=== PATIENT | male | born 1970 | race Hispanic/Latino ===

== ENCOUNTER 2017-12-09 12:00 | Emergency (ER) | payer MEDICAID ==
[~2017-12-09 12:00] MED LIST: CARV3.12 PO; CHOL4PAC21 PO; CYAN10009 PO; FOLI1TAB15 PO; FURO-151 PO; HYDR10TA14 PO; LACT10SO PO; LOSA50TA37 PO; PANT40TA25 PO; SERT25TA5 PO; SPIR100T3 PO
== END 2017-12-09 14:37 | disposition left against medical advice (07) ==
LOC: EDH 12:00
DX: R07.9 Chest pain, unspecified (principal); K74.60 Unspecified cirrhosis of liver; Z88.6 Allergy status to analgesic agent; Z87.891 Personal history of nicotine dependence
CPT/HCPCS: 71045; 93005

== ENCOUNTER → 2018-11-27 | Outpatient (CLI) | payer MEDICAID ==
[~2018-11-27] VITALS: Ht 188 cm; Wt 93.0 kg
[~2018-11-27] MED LIST changes: +HYDR-3894 PO; -HYDR10TA14 PO; -LOSA50TA37 PO; +LOSA50TA64 PO; +REGADENOSON 0.4 MG/5 ML PF SYG IVP SCH; -SPIR100T3 PO; +SPIR100T5 PO
== END | disposition home or self-care (01) ==
LOC: SHCH 07:52
PROVIDERS: ATTEND Internal Medicine Cardiovascular Disease
DX: R06.09 Other forms of dyspnea (principal)
CPT/HCPCS: 78452; 93017; 96374; A9500 ×2; J2785 ×2

== ENCOUNTER 2020-06-24 12:30 | Emergency (ER) | payer MEDICAID ==
[~2020-06-24 12:30] MED LIST changes: +CYAN-52 PO; -CYAN10009 PO; -HYDR-3894 PO; +HYDR-4419 PO; -PANT40TA25 PO; +PANT40TA54 PO; -REGADENOSON 0.4 MG/5 ML PF SYG IVP SCH
[2020-06-24 13:53] LABS: BASOPHILS % (AUTO) 0.4 % (0.0-5.0); EOSINOPHILS % (AUTO) 0.5 % (0.0-8.0); HEMATOCRIT 30.1 % (42-54); LYMPHOCYTES % (AUTO) 13.3 % (21.0-51.0); MEAN CORPUSCULAR HEMOGLOBIN 30.3 pg (27.0-33.0); MEAN CORPUSCULAR HGB CONC 33.9 g/dL (32.0-36.0); MEAN CORPUSCULAR VOLUME 89.3 fL (79-99); MONOCYTES % (AUTO) 13.7 % (3.0-13.0); NEUTROPHILS % (AUTO) 71.3 % (40.0-77.0); PLATELET COUNT (AUTO) 93 K/uL (130-400); RED BLOOD CELL COUNT(AUTO) 3.37 MIL/uL (4.50-6.20); RED CELL DISTRIBUTION WIDTH 19.6 % (11.0-15.5); WHITE BLOOD COUNT (AUTO) 10.2 K/uL (4.8-10.8)
[2020-06-24 14:04] LABS: CREATININE 1.3 mg/dL (0.5-1.5); POTASSIUM 4.4 mmol/L (3.5-5.1)
[2020-06-24 14:10] LABS: BILIRUBIN,TOTAL 2.3 mg/dL (0.2-1.0); TOTAL PROTEIN, SERUM 6.4 g/dL (6.0-8.3)
[2020-06-24 14:14] LABS: TROPONIN I 0.04 ng/mL (0.00-0.06)
== END 2020-06-24 16:03 | disposition home or self-care (01) ==
LOC: EDH 12:30
DX: K70.30 Alcoholic cirrhosis of liver without ascites (principal); R55 Syncope and collapse; G93.40 Encephalopathy, unspecified; F41.9 Anxiety disorder, unspecified; Z98.890 Other specified postprocedural states
CPT/HCPCS: 36415; 80053; 82140; 82550; 82948; 83874; 84484; 85025; 93005

== ENCOUNTER 2020-06-28 06:04 | Emergency (ER) | payer MEDICAID ==
[2020-06-28 06:31] LABS: BASOPHILS % (AUTO) 0.7 % (0.0-5.0); EOSINOPHILS % (AUTO) 2.1 % (0.0-8.0); HEMATOCRIT 32.8 % (42-54); LYMPHOCYTES % (AUTO) 30.8 % (21.0-51.0); MEAN CORPUSCULAR HGB CONC 32.6 g/dL (32.0-36.0); MEAN CORPUSCULAR VOLUME 88.9 fL (79-99); MONOCYTES % (AUTO) 13.1 % (3.0-13.0); NEUTROPHILS % (AUTO) 51.8 % (40.0-77.0); PLATELET COUNT (AUTO) 179 K/uL (130-400); RED BLOOD CELL COUNT(AUTO) 3.69 MIL/uL (4.50-6.20); RED CELL DISTRIBUTION WIDTH 19.3 % (11.0-15.5); WHITE BLOOD COUNT (AUTO) 5.4 K/uL (4.8-10.8)
[2020-06-28] MEDS ORDERED: LORAZEPAM 0.5 MG TABLET ONE (06:39)
[2020-06-28 06:42] LABS: ALBUMIN 2.3 g/dL (3.5-5.0); BILIRUBIN,TOTAL 2.5 mg/dL (0.2-1.0); POTASSIUM 4.1 mmol/L (3.5-5.1); TOTAL PROTEIN, SERUM 7.4 g/dL (6.0-8.3)
[2020-06-28 06:46] LABS: INR 1.18 (0.85-1.15); PARTIAL THROMBOPLASTIN TIME 32.7 SEC (26.3-35.5); PROTHROMBIN TIME 12.7 SEC (9.6-11.6)
[2020-06-28 06:53] LABS: B-TYPE NATRIURETIC PEPTIDE 142 pg/mL (0-100)
[2020-06-28] MEDS ORDERED: FUROSEMIDE 10 MG/ML 4ML VIAL ONE (07:12)
[2020-06-28] MEDS ORDERED: LISINOPRIL 5 MG TABLET ONE (08:26)
[2020-06-28] MEDS ORDERED: CALCIUM CARBON 500MG CHEW TAB ONE (08:30)
== END 2020-06-28 09:32 | disposition home or self-care (01) ==
LOC: EDH 06:04
DX: R60.0 Localized edema (principal); K74.60 Unspecified cirrhosis of liver; F41.9 Anxiety disorder, unspecified; Z87.891 Personal history of nicotine dependence; Z88.6 Allergy status to analgesic agent
CPT/HCPCS: 36415; 71045; 80053; 82140; 82948; 83880; 84484; 85025; 85610; 85730; 93005; 93970; 96374; 99285; J1940

== ENCOUNTER 2020-09-12 11:02 | Emergency (ER) | payer OTHER, MEDICAID ==
[2020-09-12 11:34] LABS: BASOPHILS % (AUTO) 0.1 % (0.0-5.0); HEMATOCRIT 32.3 % (42-54); LYMPHOCYTES % (AUTO) 5.9 % (21.0-51.0); MEAN CORPUSCULAR HEMOGLOBIN 28.9 pg (27.0-33.0); MEAN CORPUSCULAR HGB CONC 33.1 g/dL (32.0-36.0); MEAN CORPUSCULAR VOLUME 87.3 fL (79-99); MONOCYTES % (AUTO) 3.3 % (3.0-13.0); PLATELET COUNT (AUTO) 156 K/uL (130-400); WHITE BLOOD COUNT (AUTO) 18.2 K/uL (4.8-10.8)
[2020-09-12 11:41] LABS: CREATININE 1.3 mg/dL (0.5-1.5)
[2020-09-12 11:43] LABS: INR 1.32 (0.85-1.15); PARTIAL THROMBOPLASTIN TIME 32.7 SEC (26.3-35.5); PROTHROMBIN TIME 14.1 SEC (9.6-11.6)
[2020-09-12 11:46] LABS: ALBUMIN 2.2 g/dL (3.5-5.0); BILIRUBIN,TOTAL 2.1 mg/dL (0.2-1.0); TOTAL PROTEIN, SERUM 7.4 g/dL (6.0-8.3)
[2020-09-12] MEDS ORDERED: ALBUTEROL INHALER 90MCG/INH IH ONE (12:26)
[2020-09-12] MEDS ORDERED: CEFTRIAXONE SODIUM 1 GM ONE (12:26)
[2020-09-12] MEDS ORDERED: AZITHROMYCIN 250 MG TABLET PO ONE (12:26)
[2020-09-12] MEDS ORDERED: SODIUM CHLORIDE 0.9% 1000ML 1,000 ML IV ONE (12:27)
[2020-09-12] MEDS ORDERED: SODIUM CHLORIDE 0.9% 100 ML IV ONE (12:27)
[2020-10-01] MEDS ORDERED: METO-391 PO (23:18)
[2020-10-01] MEDS ORDERED: RIFA550T PO (23:21)
[2020-10-01] MEDS ORDERED: [UNRECOGNIZED DRUG - CODE] PO (23:21)
[2020-10-01] MEDS ORDERED: MONT10TA96 PO (23:21)
[2020-10-02] MEDS ORDERED: LEVO500T89 PO (10:43)
== END 2020-09-12 15:23 | disposition home or self-care (01) ==
LOC: EDH 11:02
DX: J84.114 Acute interstitial pneumonitis (principal); F41.1 Generalized anxiety disorder; Z20.828 Contact with and (suspected) exposure to other viral communicable diseases; Z87.891 Personal history of nicotine dependence; Z88.6 Allergy status to analgesic agent
CPT/HCPCS: 36415; 71045; 80053; 82550; 84484; 85025; 85610; 85730; 87426; 93005; 96361; 96374; 99285; J0696; J7030; U0003

== ENCOUNTER 2021-04-21 16:51 | Emergency (ER) | payer OTHER, MEDICAID ==
[~2021-04-21] VITALS: Ht 188 cm; Wt 59.0 kg
[~2021-04-21 16:51] MED LIST changes: -LACT10SO PO; +LACT10SO5 PO; +LEVO500T89 PO; +METO-391 PO; +MONT10TA32 PO; +RIFA550T PO; +SERT-438 PO; -SERT25TA5 PO; +[UNRECOGNIZED DRUG - CODE] PO
[2021-04-21] MEDS ORDERED: DIPHENHYDRAMINE HCL 25 MG CAPSULE PO ONE (18:00)
[2021-04-21] MEDS ORDERED: PREDNISONE 20 MG TABLET PO ONE (18:00)
[2021-04-21] MEDS ORDERED: BACI28.434 TP (18:02)
[2021-04-21] MEDS ORDERED: DIPH25 PO (18:02)
== END 2021-04-21 21:41 | disposition left against medical advice (07) ==
LOC: EDH 16:51
DX: L30.8 Other specified dermatitis (principal); J44.9 Chronic obstructive pulmonary disease, unspecified; Z88.6 Allergy status to analgesic agent; Z79.52 Long term (current) use of systemic steroids; Z79.899 Other long term (current) drug therapy; W57.XXXA Bitten or stung by nonvenomous insect and other nonvenomous arthropods, initial encounter
CPT/HCPCS: 99282

== ENCOUNTER 2021-06-29 04:09 | Emergency (ER) | payer MEDICAID, OTHER ==
[~2021-06-29] VITALS: Ht 190.5 cm; Wt 115.7 kg
[~2021-06-29 04:09] MED LIST changes: +BACI28.434 TP; +DIPH25 PO; -LEVO500T89 PO; +LEVO500T90 PO; +MONT-39 PO; -MONT10TA32 PO
[2021-06-29 04:49] VITALS: BP 168/88
[2021-06-29 04:49] LABS: BASOPHILS % (AUTO) 0.7 % (0.0-5.0); EOSINOPHILS % (AUTO) 3.2 % (0.0-8.0); HEMATOCRIT 31.6 % (42-54); LYMPHOCYTES % (AUTO) 28.7 % (21.0-51.0); MEAN CORPUSCULAR HGB CONC 31.3 g/dL (32.0-36.0); MEAN CORPUSCULAR VOLUME 86.3 fL (79-99); MONOCYTES % (AUTO) 10.1 % (3.0-13.0); NEUTROPHILS % (AUTO) 56.8 % (40.0-77.0); PLATELET COUNT (AUTO) 143 K/uL (130-400); RED BLOOD CELL COUNT(AUTO) 3.66 MIL/uL (4.50-6.20); RED CELL DISTRIBUTION WIDTH 20.3 % (11.0-15.5)
[2021-06-29 05:16] LABS: ALBUMIN 2.3 g/dL (3.5-5.0); BILIRUBIN,TOTAL 2.3 mg/dL (0.2-1.0); CREATININE 1.5 mg/dL (0.5-1.5); POTASSIUM 3.9 mmol/L (3.5-5.1); TOTAL PROTEIN, SERUM 6.8 g/dL (6.0-8.3)
[2021-06-29 06:29] VITALS: BP 202/96
[2021-06-29] MEDS ORDERED: MORPHINE 4 MG SYG ONE (06:39)
[2021-06-29] MEDS ORDERED: ONDANSETRON 4MG INJ ONE (06:39)
[2021-06-29] MEDS ORDERED: ONDANSETRON 4MG INJ IVP SCH (07:00)
[2021-06-29] MEDS ORDERED: MORPHINE 4 MG SYG IV SCH (07:00)
[2021-06-29 08:05] VITALS: BP 168/82
== END 2021-06-29 08:07 | disposition home or self-care (01) ==
LOC: EDH 04:09
DX: K40.90 Unilateral inguinal hernia, without obstruction or gangrene, not specified as recurrent (principal); I50.9 Heart failure, unspecified; J44.9 Chronic obstructive pulmonary disease, unspecified; Z98.890 Other specified postprocedural states; Z79.899 Other long term (current) drug therapy; Z88.6 Allergy status to analgesic agent
CPT/HCPCS: 36415; 74176; 80053; 85025; 96374; 96375; 99284; J2270; J2405

== ENCOUNTER 2021-07-03 10:22 | Inpatient (IN) | payer MEDICAID, OTHER ==
[~2021-07-03] VITALS: Ht 190.5 cm; Wt 113.4 kg
[~2021-07-03 10:22] MED LIST changes: +LEVO500T89 PO; -LEVO500T90 PO; -MONT-39 PO; +MONT10TA32 PO
[2021-07-03] MEDS ORDERED: HYDRALAZINE 20MG/ML VIAL ONE (10:39)
[2021-07-03] MEDS ORDERED: NITROGLYCERIN 1GM OINT 1 INCH/1GM TD ONE ×2 (10:40→10:54)
[2021-07-03] MEDS: HYDRALAZINE 20MG/ML VIAL IV SCH (10:54)
[2021-07-03 11:49] LABS: BASOPHILS % (AUTO) 0.6 % (0.0-5.0); EOSINOPHILS % (AUTO) 2.1 % (0.0-8.0); HEMATOCRIT 30.9 % (42-54); LYMPHOCYTES % (AUTO) 22.1 % (21.0-51.0); MEAN CORPUSCULAR HEMOGLOBIN 27.3 pg (27.0-33.0); MEAN CORPUSCULAR HGB CONC 31.4 g/dL (32.0-36.0); MONOCYTES % (AUTO) 10.3 % (3.0-13.0); NEUTROPHILS % (AUTO) 64.3 % (40.0-77.0); PLATELET COUNT (AUTO) 137 K/uL (130-400); RED BLOOD CELL COUNT(AUTO) 3.55 MIL/uL (4.50-6.20); RED CELL DISTRIBUTION WIDTH 21.3 % (11.0-15.5); WHITE BLOOD COUNT (AUTO) 6.3 K/uL (4.8-10.8)
[2021-07-03 11:59] LABS: ALBUMIN 2.2 g/dL (3.5-5.0); BILIRUBIN,TOTAL 2.7 mg/dL (0.2-1.0); CREATININE 1.1 mg/dL (0.5-1.5); POTASSIUM 3.8 mmol/L (3.5-5.1); TOTAL PROTEIN, SERUM 6.8 g/dL (6.0-8.3)
[2021-07-03 12:02] VITALS: BP 155/78
[2021-07-03 12:16] LABS: B-TYPE NATRIURETIC PEPTIDE 55 pg/mL (0-100)
[2021-07-03 12:39] LABS: APPEARANCE,URINE Clear (CLEAR); BILIRUBIN,URINE Moderate (NEGATIVE); COLOR,URINE Dark Yellow (YELLOW); GLUCOSE, URINE (UA) Negative (NEGATIVE); KETONES,URINE Trace mg/dL (NEGATIVE); LEUKOCYTE ESTERASE ,URINE Negative (NEGATIVE); NITRATE,URINE Negative (NEGATIVE); OCCULT BLOOD,URINE Small (NEGATIVE); PH,URINE 5.5 (5.0-8.0); PROTEIN,URINE 300 mg/dL (NEGATIVE)
[2021-07-03] MEDS ORDERED: ONDANSETRON 4MG INJ ONE (12:47)
[2021-07-03 12:59] LABS: BACTERIA,URINE Rare /HPF (None Seen); RBC,URINE 0-1 /HPF (0-1); SQUAMOUS EPITHELIAL CELL,UR Rare /HPF (0-2); WBC,URINE 0-1 /HPF (0-1)
[2021-07-03] MEDS: ONDANSETRON 4MG INJ 8 MG in 0.9%NACL 50ML 50 ML IVP SCH (13:10)
[2021-07-03 15:43] LABS: AMPHET/METH SCREEN,URINE NEGATIVE (NEGATIVE); BARBITURATE SCREEN, URINE NEGATIVE (NEGATIVE); BENZODIAZEPINES SCREEN,URINE NEGATIVE (NEGATIVE); CANNABINOID SCREEN,URINE NEGATIVE (NEGATIVE); COCAINE SCREEN,URINE POSITIVE (NEGATIVE); OPIATE SCREEN,URINE NEGATIVE (NEGATIVE); PHENCYCLIDINE SCREEN,URINE NEGATIVE (NEGATIVE)
[2021-07-03] MEDS ORDERED: DEXTROSE 50%-WATER 50 ML DISP.SYRIN IV PRN (16:00)
[2021-07-03] MEDS ORDERED: MAGNESIUM 2GM PREMIX 50ML 50 ML IV PRN (16:00)
[2021-07-03] MEDS ORDERED: KCL 20 MEQ ERTAB PO PRN (16:00)
[2021-07-03] MEDS ORDERED: POTASSIUM CHLORIDE 20MEQ/100ML 100 ML IV PRN ×2 (16:00)
[2021-07-03] MEDS ORDERED: LIDOCAINE HCL-MPF 1% 2ML VIAL IV PRN ×2 (16:00)
[2021-07-03] MEDS ORDERED: GLUCAGON 1MG KIT 1 MG ML IM PRN (16:00)
[2021-07-03] MEDS ORDERED: POTASSIUM CHLORIDE 10% ELIXIR 20 MEQ/15 ML UDCUP PO PRN (16:00)
[2021-07-03] MEDS: IPRATROPIUM 0.5 MG/2.5 ML INH IH SCH ×2 (16:14→21:30)
[2021-07-03] MEDS: INSULIN HUMULIN R 100 UNIT/ML 3ML SQ SCH ×2 (16:30→20:44)
[2021-07-03 16:48] LABS: HEMOGLOBIN A1C 5.6 % (4.0-6.0)
[2021-07-03] MEDS: GUAIFENESIN-DM 200/20 MG 10 ML PO SCH ×2 (17:12→21:16)
[2021-07-03] MEDS: HYDROMORPHONE 0.5 MG SYG (0.5MG/0.5ML) IVP PRN (17:24)
[2021-07-03] MEDS ORDERED: IOHEXOL 350 MG/ML 100ML INFUS..BTL IV ONE (17:41)
[2021-07-03] MEDS: BUDESONIDE 0.5 MG/2 ML INH IH SCH (18:00)
[2021-07-03] MEDS ORDERED: LORAZEPAM 0.5 MG TABLET ONE (18:16)
[2021-07-03] MEDS ORDERED: LORAZEPAM 0.5 MG TABLET PO ONE (18:30)
[2021-07-03 19:20] VITALS: BP 176/91
[2021-07-03] MEDS: LACTULOSE 20 GM/30 ML UDCUP PO SCH (20:26)
[2021-07-03 20:48] VITALS: BP 155/88
[2021-07-03] MEDS ORDERED: SOLU-MEDROL 40MG VIAL IVP SCH (21:00)
[2021-07-03] MEDS: RIFAXIMIN 550 MG TABLET PO SCH (21:16)
[2021-07-03] MEDS: PANTOPRAZOLE 40 MG TAB DR PO SCH (21:16)
[2021-07-03 22:59] VITALS: BP 120/94
[2021-07-04] VITALS (10 sets, daily range): BP systolic 134–198; BP diastolic 77–98
[2021-07-04] MEDS: HYDROMORPHONE 0.5 MG SYG (0.5MG/0.5ML) IVP PRN ×3 (00:22→19:57)
[2021-07-04] MEDS: HYDRALAZINE 20MG/ML VIAL IV PRN ×2 (01:19→11:04)
[2021-07-04] MEDS: LACTULOSE 20 GM/30 ML UDCUP PO SCH ×3 (03:18→18:03)
[2021-07-04] MEDS: GUAIFENESIN-DM 200/20 MG 10 ML PO SCH ×4 (04:59→22:21)
[2021-07-04] MEDS: BUDESONIDE 0.5 MG/2 ML INH IH SCH ×2 (06:36→18:20)
[2021-07-04] MEDS: INSULIN HUMULIN R 100 UNIT/ML 3ML SQ SCH ×4 (07:30→19:55)
[2021-07-04] MEDS: RIFAXIMIN 550 MG TABLET PO SCH ×2 (08:41→19:55)
[2021-07-04] MEDS: PANTOPRAZOLE 40 MG TAB DR PO SCH ×2 (08:41→19:55)
[2021-07-04] MEDS: DEXAMETHASONE 4 MG TAB PO SCH (08:41)
[2021-07-04 08:43] LABS: BASOPHILS % (AUTO) 0.5 % (0.0-5.0); EOSINOPHILS % (AUTO) 1.1 % (0.0-8.0); HEMATOCRIT 32.1 % (42-54); LYMPHOCYTES % (AUTO) 16.5 % (21.0-51.0); MEAN CORPUSCULAR HEMOGLOBIN 27.2 pg (27.0-33.0); MEAN CORPUSCULAR HGB CONC 31.5 g/dL (32.0-36.0); MEAN CORPUSCULAR VOLUME 86.5 fL (79-99); MONOCYTES % (AUTO) 9.5 % (3.0-13.0); NEUTROPHILS % (AUTO) 71.6 % (40.0-77.0); PLATELET COUNT (AUTO) 153 K/uL (130-400); RED BLOOD CELL COUNT(AUTO) 3.71 MIL/uL (4.50-6.20); RED CELL DISTRIBUTION WIDTH 21.7 % (11.0-15.5); WHITE BLOOD COUNT (AUTO) 7.3 K/uL (4.8-10.8)
[2021-07-04 08:45] LABS: CREATININE 0.9 mg/dL (0.5-1.5); POTASSIUM 3.9 mmol/L (3.5-5.1)
[2021-07-04] MEDS: DiphenhydrAMINE HCL 50 MG/ML VIAL IV SCH ×2 (09:30→16:28)
[2021-07-04] MEDS: SPIRONOLACTONE 25 MG TAB PO SCH (10:26)
[2021-07-04] MEDS: METOPROLOL SUCCINATE 50 MG TAB.SR.24H PO SCH (10:27)
[2021-07-04] MEDS: HYDRALAZINE 20MG/ML VIAL IV SCH (10:54)
[2021-07-04] MEDS: ONDANSETRON 4MG INJ 8 MG in 0.9%NACL 50ML 50 ML IVP SCH (12:30)
[2021-07-04] MEDS ORDERED: HYDROMORPHONE 0.5 MG SYG (0.5MG/0.5ML) IVP ONE (13:00)
[2021-07-04] MEDS: IPRATROPIUM 0.5 MG/2.5 ML INH IH SCH ×3 (13:10→18:21)
[2021-07-04] MEDS ORDERED: LORAZEPAM 0.5 MG TABLET PO PRN (15:30)
[2021-07-04] MEDS ORDERED: HYDROXYZINE 25 MG TABLET ONE (20:10)
[2021-07-04] MEDS ORDERED: DIPHENHYDRAMINE HCL 25 MG CAPSULE PO ONE (20:30)
[2021-07-04] MEDS ORDERED: DIPHENHYDRAMINE HCL 25 MG CAPSULE ONE (22:19)
[2021-07-05] MEDS: IPRATROPIUM 0.5 MG/2.5 ML INH IH SCH ×5 (00:12→23:06)
[2021-07-05] MEDS: LACTULOSE 20 GM/30 ML UDCUP PO SCH ×3 (01:30→18:03)
[2021-07-05] MEDS: HYDROMORPHONE 0.5 MG SYG (0.5MG/0.5ML) IVP PRN ×3 (03:01→18:12)
[2021-07-05] MEDS: GUAIFENESIN-DM 200/20 MG 10 ML PO SCH ×4 (03:01→22:15)
[2021-07-05 04:00] VITALS: BP 152/78
[2021-07-05] MEDS: INSULIN HUMULIN R 100 UNIT/ML 3ML SQ SCH ×4 (04:07→20:07)
[2021-07-05] MEDS: BUDESONIDE 0.5 MG/2 ML INH IH SCH ×2 (06:42→18:54)
[2021-07-05 08:20] VITALS: BP 141/83
[2021-07-05] MEDS: RIFAXIMIN 550 MG TABLET PO SCH ×2 (08:48→20:07)
[2021-07-05] MEDS: METOPROLOL SUCCINATE 50 MG TAB.SR.24H PO SCH (08:48)
[2021-07-05] MEDS: SPIRONOLACTONE 25 MG TAB PO SCH (08:48)
[2021-07-05] MEDS: HYDROXYZINE 25 MG TABLET PO PRN ×2 (08:49→18:09)
[2021-07-05] MEDS: FLUTICASONE PROPIONATE 50MCG/SPRAY 16 GM BOTTLE EN SCH (08:49)
[2021-07-05] MEDS: DEXAMETHASONE 4 MG TAB PO SCH (08:49)
[2021-07-05] MEDS: PANTOPRAZOLE 40 MG TAB DR PO SCH ×2 (08:49→20:07)
[2021-07-05] MEDS: ONDANSETRON 4MG INJ 8 MG in 0.9%NACL 50ML 50 ML IVP SCH (10:47)
[2021-07-05] MEDS: HYDRALAZINE 20MG/ML VIAL IV SCH (10:47)
[2021-07-05 11:11] VITALS: BP 138/78
[2021-07-05] MEDS ORDERED: DiphenhydrAMINE HCL 50 MG/ML VIAL ONE (11:42)
[2021-07-05 15:32] VITALS: BP 140/76
[2021-07-05 19:38] VITALS: BP 136/70
[2021-07-05] MEDS: DiphenhydrAMINE HCL 50 MG/ML VIAL IV PRN (20:07)
[2021-07-05 23:50] VITALS: BP 136/85
[2021-07-06] MEDS: HYDROMORPHONE 0.5 MG SYG (0.5MG/0.5ML) IVP PRN ×4 (01:26→23:40)
[2021-07-06] MEDS: DiphenhydrAMINE HCL 50 MG/ML VIAL IV PRN ×2 (02:21→20:30)
[2021-07-06] MEDS: LACTULOSE 20 GM/30 ML UDCUP PO SCH ×4 (02:25→20:15)
[2021-07-06 04:00] VITALS: BP 145/80
[2021-07-06] MEDS: GUAIFENESIN-DM 200/20 MG 10 ML PO SCH ×4 (04:27→20:24)
[2021-07-06] MEDS: INSULIN HUMULIN R 100 UNIT/ML 3ML SQ SCH ×4 (06:11→21:00)
[2021-07-06] MEDS: BUDESONIDE 0.5 MG/2 ML INH IH SCH ×2 (06:36→18:40)
[2021-07-06] MEDS: IPRATROPIUM 0.5 MG/2.5 ML INH IH SCH ×4 (06:36→23:15)
[2021-07-06] MEDS: ONDANSETRON 4MG INJ 8 MG in 0.9%NACL 50ML 50 ML IVP SCH (07:44)
[2021-07-06 07:46] VITALS: BP 139/94
[2021-07-06 08:53] LABS: HEMATOCRIT 29.8 % (42-54); MEAN CORPUSCULAR HEMOGLOBIN 27.9 pg (27.0-33.0); MEAN CORPUSCULAR HGB CONC 31.5 g/dL (32.0-36.0); MEAN CORPUSCULAR VOLUME 88.4 fL (79-99); PLATELET COUNT (AUTO) 186 K/uL (130-400); RED BLOOD CELL COUNT(AUTO) 3.37 MIL/uL (4.50-6.20); WHITE BLOOD COUNT (AUTO) 13.8 K/uL (4.8-10.8)
[2021-07-06] MEDS: SPIRONOLACTONE 25 MG TAB PO SCH (09:00)
[2021-07-06 09:17] LABS: CREATININE 1.6 mg/dL (0.5-1.5); POTASSIUM 4.4 mmol/L (3.5-5.1)
[2021-07-06 09:27] LABS: ALBUMIN 2.2 g/dL (3.5-5.0); BILIRUBIN,TOTAL 2.9 mg/dL (0.2-1.0); TOTAL PROTEIN, SERUM 6.6 g/dL (6.0-8.3)
[2021-07-06] MEDS: DEXAMETHASONE 4 MG TAB PO SCH (09:52)
[2021-07-06] MEDS: METOPROLOL SUCCINATE 50 MG TAB.SR.24H PO SCH (09:53)
[2021-07-06] MEDS: RIFAXIMIN 550 MG TABLET PO SCH ×2 (09:53→20:24)
[2021-07-06] MEDS: PANTOPRAZOLE 40 MG TAB DR PO SCH ×2 (09:53→20:24)
[2021-07-06] MEDS: FLUTICASONE PROPIONATE 50MCG/SPRAY 16 GM BOTTLE EN SCH (09:54)
[2021-07-06 12:04] LABS: CREATININE 1.7 mg/dL (0.5-1.5); POTASSIUM 4.6 mmol/L (3.5-5.1)
[2021-07-06 12:25] VITALS: BP 155/83
[2021-07-06] MEDS ORDERED: LORAZEPAM 0.5 MG TABLET ONE (12:34)
[2021-07-06] MEDS ORDERED: LORAZEPAM 0.5 MG TABLET PO SCH (13:00)
[2021-07-06 16:54] VITALS: BP 158/85
[2021-07-06] MEDS ORDERED: SODIUM BICARBONATE 650 MG TAB PO PRN (19:30)
[2021-07-06 19:45] LABS: CREATININE,URINE RANDOM 107 mg/dL (30-135); SODIUM,URINE RANDOM 71 mmol/l (40-220)
[2021-07-06 20:00] VITALS: BP 151/94
[2021-07-06 20:21] LABS: APPEARANCE,URINE Clear (CLEAR); BILIRUBIN,URINE Small (NEGATIVE); COLOR,URINE Dark Yellow (YELLOW); GLUCOSE, URINE (UA) TRACE mg/dL (NEGATIVE); KETONES,URINE Negative (NEGATIVE); LEUKOCYTE ESTERASE ,URINE Negative (NEGATIVE); NITRATE,URINE Negative (NEGATIVE); OCCULT BLOOD,URINE Negative (NEGATIVE); PROTEIN,URINE POS 2+ mg/dL (NEGATIVE)
[2021-07-06] MEDS: Vitamin B Complex/Vit C/Folic Acid PO SCH (20:24)
[2021-07-06 20:28] LABS: BACTERIA,URINE Rare /HPF (None Seen); RBC,URINE 0-1 /HPF (0-1); SQUAMOUS EPITHELIAL CELL,UR Rare /HPF (0-2); WBC,URINE 0-1 /HPF (0-1)
[2021-07-06 20:29] LABS: HYALINE CASTS, URINE 0-1 /LPF (0-1 /LPF)
[2021-07-07] VITALS: BP 127/89
[2021-07-07] MEDS: GUAIFENESIN-DM 200/20 MG 10 ML PO SCH ×2 (02:55→09:27)
[2021-07-07 04:00] VITALS: BP 128/83
[2021-07-07 04:13] LABS: HEMATOCRIT 33.7 % (42-54); MEAN CORPUSCULAR HEMOGLOBIN 27.6 pg (27.0-33.0); MEAN CORPUSCULAR HGB CONC 31.2 g/dL (32.0-36.0); MEAN CORPUSCULAR VOLUME 88.7 fL (79-99); PLATELET COUNT (AUTO) 185 K/uL (130-400); RED CELL DISTRIBUTION WIDTH 22.5 % (11.0-15.5); WHITE BLOOD COUNT (AUTO) 12.2 K/uL (4.8-10.8)
[2021-07-07 04:46] LABS: CREATININE 1.5 mg/dL (0.5-1.5); MAGNESIUM 2.8 mg/dL (1.80-2.40); POTASSIUM 4.7 mmol/L (3.5-5.1); THYROID STIMULATING HORMONE 1.43 uIU/mL (0.36-3.74); URIC ACID 6.5 mg/dL (2.6-7.2)
[2021-07-07 05:26] LABS: BAND NEUTROPHILS % (MANUAL) 1 % (0-2); LYMPHOCYTES % (MANUAL) 6 % (22-44); MONOCYTES % (MANUAL) 5 % (2-9); SEGMENTED NEUTROPHILS % 88 % (40-70)
[2021-07-07 05:27] LABS: MAN.DIFF COMMENT-IMPRESSION MANUAL DIFFERENTIAL; PLATELET MORPHOLOGY COMMENT ADEQUATE
[2021-07-07] MEDS: INSULIN HUMULIN R 100 UNIT/ML 3ML SQ SCH ×2 (05:48→11:30)
[2021-07-07] MEDS: DiphenhydrAMINE HCL 50 MG/ML VIAL IV PRN (06:07)
[2021-07-07] MEDS: HYDROMORPHONE 0.5 MG SYG (0.5MG/0.5ML) IVP PRN ×2 (06:08→12:49)
[2021-07-07] MEDS: IPRATROPIUM 0.5 MG/2.5 ML INH IH SCH ×2 (06:26→12:14)
[2021-07-07] MEDS: BUDESONIDE 0.5 MG/2 ML INH IH SCH (06:26)
[2021-07-07 08:00] VITALS: BP 154/82
[2021-07-07] MEDS: SPIRONOLACTONE 25 MG TAB PO SCH ×2 (09:00→10:07)
[2021-07-07] MEDS: METOPROLOL SUCCINATE 50 MG TAB.SR.24H PO SCH (09:22)
[2021-07-07] MEDS: PANTOPRAZOLE 40 MG TAB DR PO SCH (09:23)
[2021-07-07] MEDS: Vitamin B Complex/Vit C/Folic Acid PO SCH (09:23)
[2021-07-07] MEDS: RIFAXIMIN 550 MG TABLET PO SCH (09:23)
[2021-07-07] MEDS: DEXAMETHASONE 4 MG TAB PO SCH (09:24)
[2021-07-07] MEDS: HYDROXYZINE 25 MG TABLET PO PRN (09:25)
[2021-07-07] MEDS: FLUTICASONE PROPIONATE 50MCG/SPRAY 16 GM BOTTLE EN SCH (09:25)
[2021-07-07] MEDS: LACTULOSE 20 GM/30 ML UDCUP PO SCH (09:25)
[2021-07-07] MEDS: ONDANSETRON 4MG INJ 8 MG in 0.9%NACL 50ML 50 ML IVP SCH (09:26)
[2021-07-07] MEDS ORDERED: SODIUM BICARBONATE 650 MG TAB PO SCH (09:30)
[2021-07-07 12:00] VITALS: BP 148/83
[2021-07-07] MEDS ORDERED: ZOLP10TA2 PO (13:45)
[2021-07-07] MEDS ORDERED: TIOT18CA3 IH (13:57)
[2021-07-07] MEDS ORDERED: BUDE90AE IH (13:57)
== END 2021-07-07 17:10 | disposition home or self-care (01) | DRG 140 ==
LOC: EDH 10:22 → EDHIP 10:23 → 4AH 07-04 09:29 → 4CH 07-06 10:25
PROVIDERS: ADMIT Internal Medicine; ATTEND Internal Medicine
DX: J44.1 Chronic obstructive pulmonary disease with (acute) exacerbation (principal); N17.9 Acute kidney failure, unspecified; E11.22 Type 2 diabetes mellitus with diabetic chronic kidney disease; I13.0 Hypertensive heart and chronic kidney disease with heart failure and stage 1 through stage 4 chronic kidney disease, or unspecified chronic kidney disease; R18.8 Other ascites; E87.1 Hypo-osmolality and hyponatremia; I50.9 Heart failure, unspecified; R07.9 Chest pain, unspecified; K74.60 Unspecified cirrhosis of liver; G47.33 Obstructive sleep apnea (adult) (pediatric); D64.9 Anemia, unspecified; N18.9 Chronic kidney disease, unspecified; F14.10 Cocaine abuse, uncomplicated; Z20.822 Contact with and (suspected) exposure to COVID-19; E78.00 Pure hypercholesterolemia, unspecified; F31.9 Bipolar disorder, unspecified; G43.901 Migraine, unspecified, not intractable, with status migrainosus; Z53.20 Procedure and treatment not carried out because of patient's decision for unspecified reasons; Z79.4 Long term (current) use of insulin; Z79.899 Other long term (current) drug therapy; Z88.8 Allergy status to other drugs, medicaments and biological substances; Z86.73 Personal history of transient ischemic attack (TIA), and cerebral infarction without residual deficits; Z82.3 Family history of stroke; Z82.49 Family history of ischemic heart disease and other diseases of the circulatory system; Z82.0 Family history of epilepsy and other diseases of the nervous system; Z82.5 Family history of asthma and other chronic lower respiratory diseases; Z83.3 Family history of diabetes mellitus; Z91.19 Patient's noncompliance with other medical treatment and regimen; E66.9 Obesity, unspecified; Z68.31 Body mass index [BMI] 31.0-31.9, adult
CPT/HCPCS: 36415; 70450; 70544; 70551; 71045; 71275; 76700; 80048; 80053; 80305; 81001; 82140; 82550; 82570; 82948; 83036; 83735; 83880; 84100; 84300; 84443; 84484; 84550; 85025; 85027; 85378; 87040; 87486; 87581; 87633; 87635; 87798; 87804; 93005; 94640; C9803; G0378; J0360; J1170; J1200; J2405; J8540; Q0163; Q9967

== ENCOUNTER 2021-07-09 22:01 | Inpatient (IN) | payer OTHER, MEDICAID ==
[~2021-07-09] VITALS: Ht 182.9 cm; Wt 115.8 kg
[~2021-07-09 22:01] MED LIST changes: -BACI28.434 TP; +BUDE90AE IH; -CARV3.12 PO; -DIPH25 PO; -FOLI1TAB15 PO; -HYDR-4419 PO; -LEVO500T89 PO; -LOSA50TA64 PO; -RIFA550T PO; -SPIR100T5 PO; +TIOT18CA3 IH; +ZOLP10TA2 PO
[2021-07-09 22:04] VITALS: BP 134/65
[2021-07-09 23:13] LABS: ABG BASE EXCESS -4.4 mmol/L (-2.0-3.0); ABG HCO3 18.5 mmol/L (21.0-28.0); ABG OXYGEN SATURATION 96.5 % (95.0-99.0); ABG PCO2 29 mmHg (35-48)
[2021-07-09 23:14] LABS: CREATININE 1.4 mg/dL (0.5-1.5); POTASSIUM 4.3 mmol/L (3.5-5.1)
[2021-07-09 23:18] LABS: ALBUMIN 2.2 g/dL (3.5-5.0); BILIRUBIN,TOTAL 2.5 mg/dL (0.2-1.0); MAGNESIUM 2.3 mg/dL (1.80-2.40); TOTAL PROTEIN, SERUM 6.2 g/dL (6.0-8.3)
[2021-07-09 23:48] LABS: B-TYPE NATRIURETIC PEPTIDE 96 pg/mL (0-100)
[2021-07-09 23:50] LABS: BASOPHILS % (AUTO) 0.1 % (0.0-5.0); EOSINOPHILS % (AUTO) 0.6 % (0.0-8.0); HEMATOCRIT 28.9 % (42-54); LYMPHOCYTES % (AUTO) 16.2 % (21.0-51.0); MEAN CORPUSCULAR HGB CONC 32.5 g/dL (32.0-36.0); MONOCYTES % (AUTO) 15.2 % (3.0-13.0); NEUTROPHILS % (AUTO) 66.7 % (40.0-77.0); NUCLEATED RED BLOOD CELLS 0.2 % (0.0-0.19); PLATELET COUNT (AUTO) 119 K/uL (130-400); RED BLOOD CELL COUNT(AUTO) 3.36 MIL/uL (4.50-6.20); RED CELL DISTRIBUTION WIDTH 21.9 % (11.0-15.5)
[2021-07-10] VITALS (13 sets, daily range): BP systolic 139–199; BP diastolic 70–128
[2021-07-10 00:44] LABS: APPEARANCE,URINE Clear (CLEAR); BILIRUBIN,URINE Small (NEGATIVE); COLOR,URINE Dark Yellow (YELLOW); GLUCOSE, URINE (UA) 250 mg/dL (NEGATIVE); KETONES,URINE Negative (NEGATIVE); LEUKOCYTE ESTERASE ,URINE Negative (NEGATIVE); NITRATE,URINE Negative (NEGATIVE); OCCULT BLOOD,URINE Small (NEGATIVE); PROTEIN,URINE POS 2+ mg/dL (NEGATIVE)
[2021-07-10 00:54] LABS: BACTERIA,URINE None Seen /HPF (None Seen); WBC,URINE 0-1 /HPF (0-1)
[2021-07-10 00:55] LABS: OTHER CASTS, URINE RBC CASTS 1+ /LPF (None Seen); SQUAMOUS EPITHELIAL CELL,UR Few /HPF (0-2)
[2021-07-10 01:08] LABS: AMPHET/METH SCREEN,URINE NEGATIVE (NEGATIVE); BARBITURATE SCREEN, URINE NEGATIVE (NEGATIVE); BENZODIAZEPINES SCREEN,URINE NEGATIVE (NEGATIVE); CANNABINOID SCREEN,URINE NEGATIVE (NEGATIVE); COCAINE SCREEN,URINE POSITIVE (NEGATIVE); OPIATE SCREEN,URINE NEGATIVE (NEGATIVE); PHENCYCLIDINE SCREEN,URINE NEGATIVE (NEGATIVE)
[2021-07-10] MEDS ORDERED: NITROGLYCERIN 1GM OINT 1 INCH/1GM TD ONE ×2 (04:00→04:23)
[2021-07-10] MEDS ORDERED: BENZONATATE 100 MG CAPSULE PO SCH (05:00)
[2021-07-10] MEDS ORDERED: SOLU-MEDROL 125MG VIAL IVP ONE (05:00)
[2021-07-10] MEDS ORDERED: IPRATROPIUM/ALBUTEROL SULFATE 3 ML SOLUTION IH ONE (05:00)
[2021-07-10] MEDS ORDERED: NITROGLYCERIN 0.4 MG SL TAB SL PRN (06:00)
[2021-07-10] MEDS ORDERED: IPRATROPIUM/ALBUTEROL SULFATE 3 ML SOLUTION IH PRN (06:00)
[2021-07-10] MEDS ORDERED: LACTULOSE 20 GM/30 ML UDCUP PO PRN (06:00)
[2021-07-10] MEDS ORDERED: MAG/ALUM/SIMETH 30 ML UDCUP PO PRN (06:00)
[2021-07-10] MEDS ORDERED: ONDANSETRON 4MG INJ IV PRN (06:00)
[2021-07-10] MEDS ORDERED: HYDRALAZINE 20MG/ML VIAL ONE (06:39)
[2021-07-10 06:44] LABS: CHOLESTEROL 115 mg/dL (<200); HDL CHOLESTEROL 23 mg/dL (29-71); LDL DIRECT 63 mg/dL (0-99); TRIGLYCERIDES 100 mg/dL (30-200)
[2021-07-10] MEDS: HYDRALAZINE 20MG/ML VIAL IV PRN ×2 (06:50→09:28)
[2021-07-10] MEDS: INSULIN HUMULIN R 100 UNIT/ML 3ML SQ SCH ×7 (07:30→20:10)
[2021-07-10] MEDS: FAMOTIDINE 20MG TAB PO SCH (08:36)
[2021-07-10] MEDS: ENOXAPARIN SODIUM 40 MG/0.4 ML SYRINGE SQ SCH (08:36)
[2021-07-10] MEDS ORDERED: RIFAXIMIN 200 MG TABLET PO SCH (09:00)
[2021-07-10] MEDS ORDERED: AMLODIPINE 5 MG TAB PO SCH ×2 (09:00→11:00)
[2021-07-10] MEDS: HYDRALAZINE 25MG TABLET PO SCH ×4 (09:27→19:56)
[2021-07-10] MEDS: RIFAXIMIN 550 MG TABLET PO SCH ×2 (09:27→19:56)
[2021-07-10] MEDS ORDERED: FUROSEMIDE 40MG VIAL IV SCH (10:30)
[2021-07-10] MEDS: LACTULOSE 20 GM/30 ML UDCUP PO SCH ×3 (11:07→21:00)
[2021-07-10] MEDS: CLONIDINE HCL 0.1 MG TABLET PO PRN (11:16)
[2021-07-10] MEDS: LEVOFLOXACIN 500 MG TABLET PO SCH (11:55)
[2021-07-10] MEDS: TRAMADOL HCL 50 MG TABLET PO PRN (20:08)
[2021-07-10] MEDS ORDERED: INSULIN GLARGINE 100 UNITS/ML 10 ML VIAL SQ SCH (21:00)
[2021-07-10] MEDS: INSULIN GLARGINE 100 UNITS/ML 10 ML VIAL SQ SCH (21:00)
[2021-07-10] MEDS ORDERED: INSULIN HUMULIN R 100 UNIT/ML 3ML SQ ONE (21:00)
[2021-07-10] MEDS ORDERED: INSULIN GLARGINE 100 UNITS/ML 10 ML VIAL SQ ONE (21:00)
[2021-07-10] MEDS: IPRATROPIUM 0.5 MG/2.5 ML INH IH SCH (23:11)
[2021-07-10] MEDS ORDERED: PHARMACY COMMUNICATION MISC SCH (23:45)
[2021-07-10] MEDS ORDERED: KETOROLAC 30MG VIAL (30MG/ML) ONE (23:50)
[2021-07-11] MEDS ORDERED: MEPERIDINE-PF 50 MG/ML SYG IVP ONE
[2021-07-11] MEDS ORDERED: KETOROLAC 30MG VIAL (30MG/ML) IV ONE
[2021-07-11 00:04] VITALS: BP 172/84
[2021-07-11] MEDS: CLONIDINE HCL 0.1 MG TABLET PO PRN ×2 (00:50→20:44)
[2021-07-11 04:08] VITALS: BP 171/89
[2021-07-11] MEDS ORDERED: CLIN-116 PO (05:25)
[2021-07-11] MEDS ORDERED: ATOR40TA69 PO (05:25)
[2021-07-11] MEDS ORDERED: NITR0.4T50 SL (05:25)
[2021-07-11] MEDS ORDERED: DOCU-116 PO (05:25)
[2021-07-11] MEDS ORDERED: PRED20TA3 PO (05:25)
[2021-07-11] MEDS ORDERED: SUCR1TAB2 PO (05:25)
[2021-07-11] MEDS ORDERED: TRIA1KT.2 TP (05:25)
[2021-07-11] MEDS ORDERED: TOPI25TA48 PO (05:25)
[2021-07-11] MEDS: HYDRALAZINE 20MG/ML VIAL IV PRN (05:43)
[2021-07-11 06:08] LABS: CRP QUANTITATIVE 12.5 mg/L (0.00-9.0)
[2021-07-11 06:28] LABS: BASOPHILS % (AUTO) 0.1 % (0.0-5.0); HEMATOCRIT 31.5 % (42-54); LYMPHOCYTES % (AUTO) 4.3 % (21.0-51.0); MEAN CORPUSCULAR HEMOGLOBIN 27.6 pg (27.0-33.0); MEAN CORPUSCULAR HGB CONC 32.1 g/dL (32.0-36.0); MEAN CORPUSCULAR VOLUME 86.1 fL (79-99); MONOCYTES % (AUTO) 8.2 % (3.0-13.0); NEUTROPHILS % (AUTO) 86.5 % (40.0-77.0); NUCLEATED RED BLOOD CELLS 0.1 % (0.0-0.19); PLATELET COUNT (AUTO) 132 K/uL (130-400); RED BLOOD CELL COUNT(AUTO) 3.66 MIL/uL (4.50-6.20); RED CELL DISTRIBUTION WIDTH 22.2 % (11.0-15.5)
[2021-07-11 06:34] LABS: CREATININE 1.4 mg/dL (0.5-1.5)
[2021-07-11] MEDS: IPRATROPIUM 0.5 MG/2.5 ML INH IH SCH ×4 (06:45→22:54)
[2021-07-11 06:48] LABS: HEMOGLOBIN A1C 6.1 % (4.0-6.0)
[2021-07-11] MEDS: INSULIN HUMULIN R 100 UNIT/ML 3ML SQ SCH ×7 (07:01→20:52)
[2021-07-11 08:01] VITALS: BP 165/85
[2021-07-11] MEDS: HYDRALAZINE 25MG TABLET PO SCH ×4 (09:00→20:43)
[2021-07-11] MEDS: LACTULOSE 20 GM/30 ML UDCUP PO SCH ×2 (09:00→21:00)
[2021-07-11] MEDS: FAMOTIDINE 20MG TAB PO SCH (09:54)
[2021-07-11] MEDS: RIFAXIMIN 550 MG TABLET PO SCH ×2 (09:54→20:43)
[2021-07-11] MEDS: LEVOFLOXACIN 500 MG TABLET PO SCH (09:54)
[2021-07-11] MEDS: PREDNISONE 20 MG TABLET PO SCH (09:54)
[2021-07-11] MEDS: ENOXAPARIN SODIUM 40 MG/0.4 ML SYRINGE SQ SCH (09:56)
[2021-07-11] MEDS: FUROSEMIDE 40 MG TABLET PO SCH (11:30)
[2021-07-11 11:50] VITALS: BP 173/82
[2021-07-11] MEDS: MORPHINE 2 MG SYG IVP PRN ×2 (12:01→20:45)
[2021-07-11 16:38] VITALS: BP 191/91
[2021-07-11] MEDS: AMLODIPINE 5 MG TAB PO SCH (18:24)
[2021-07-11 20:04] VITALS: BP 180/94
[2021-07-11] MEDS: INSULIN GLARGINE 100 UNITS/ML 10 ML VIAL SQ SCH (20:53)
[2021-07-12] VITALS (7 sets, daily range): BP systolic 149–182; BP diastolic 81–99
[2021-07-12] MEDS: CLONIDINE HCL 0.1 MG TABLET PO PRN (04:38)
[2021-07-12] MEDS: MORPHINE 2 MG SYG IVP PRN ×2 (04:40→13:12)
[2021-07-12 05:12] LABS: HEMATOCRIT 27.9 % (42-54); MEAN CORPUSCULAR HEMOGLOBIN 27.4 pg (27.0-33.0); MEAN CORPUSCULAR HGB CONC 32.3 g/dL (32.0-36.0); MEAN CORPUSCULAR VOLUME 84.8 fL (79-99); RED BLOOD CELL COUNT(AUTO) 3.29 MIL/uL (4.50-6.20); RED CELL DISTRIBUTION WIDTH 22.4 % (11.0-15.5); WHITE BLOOD COUNT (AUTO) 15.2 K/uL (4.8-10.8)
[2021-07-12 05:25] LABS: CREATININE 1.3 mg/dL (0.5-1.5); POTASSIUM 3.6 mmol/L (3.5-5.1)
[2021-07-12] MEDS: INSULIN HUMULIN R 100 UNIT/ML 3ML SQ SCH ×6 (06:40→20:52)
[2021-07-12] MEDS: LACTULOSE 20 GM/30 ML UDCUP PO SCH ×2 (10:12→20:44)
[2021-07-12] MEDS: RIFAXIMIN 550 MG TABLET PO SCH ×2 (10:12→20:43)
[2021-07-12] MEDS: LEVOFLOXACIN 500 MG TABLET PO SCH (10:13)
[2021-07-12] MEDS: FUROSEMIDE 40 MG TABLET PO SCH (10:13)
[2021-07-12] MEDS: FAMOTIDINE 20MG TAB PO SCH (10:13)
[2021-07-12] MEDS: PREDNISONE 20 MG TABLET PO SCH (10:13)
[2021-07-12] MEDS: AMLODIPINE 5 MG TAB PO SCH (10:13)
[2021-07-12] MEDS: ENOXAPARIN SODIUM 40 MG/0.4 ML SYRINGE SQ SCH (10:15)
[2021-07-12] MEDS: HYDRALAZINE 25MG TABLET PO SCH ×4 (10:19→20:44)
[2021-07-12] MEDS: IPRATROPIUM 0.5 MG/2.5 ML INH IH SCH ×2 (12:00→18:16)
[2021-07-12] MEDS ORDERED: INSULIN HUMULIN R 100 UNIT/ML 3ML SQ SCH (17:00)
[2021-07-12] MEDS ORDERED: GUAIFENESIN-DM 200/20 MG 10 ML PO PRN (19:00)
[2021-07-12] MEDS: TRAMADOL HCL 50 MG TABLET PO PRN (20:48)
[2021-07-12] MEDS: INSULIN GLARGINE 100 UNITS/ML 10 ML VIAL SQ SCH (20:51)
[2021-07-13] MEDS ORDERED: LOSARTAN 25 MG TABLET PO SCH (09:00)
== END 2021-07-12 21:55 | disposition left against medical advice (07) | DRG 917 ==
LOC: EDH 22:01 → EDHIP 07-10 05:40 → 4CH 07-10 09:19
PROVIDERS: ADMIT Internal Medicine; ATTEND Internal Medicine
DX: T40.5X1A Poisoning by cocaine, accidental (unintentional), initial encounter (principal); I21.A1 Myocardial infarction type 2; J44.1 Chronic obstructive pulmonary disease with (acute) exacerbation; I13.0 Hypertensive heart and chronic kidney disease with heart failure and stage 1 through stage 4 chronic kidney disease, or unspecified chronic kidney disease; N17.9 Acute kidney failure, unspecified; J44.0 Chronic obstructive pulmonary disease with (acute) lower respiratory infection; I16.0 Hypertensive urgency; F14.129 Cocaine abuse with intoxication, unspecified; E11.22 Type 2 diabetes mellitus with diabetic chronic kidney disease; I50.9 Heart failure, unspecified; K74.60 Unspecified cirrhosis of liver; D64.9 Anemia, unspecified; B19.20 Unspecified viral hepatitis C without hepatic coma; N18.30 Chronic kidney disease, stage 3 unspecified; Z20.822 Contact with and (suspected) exposure to COVID-19; E11.65 Type 2 diabetes mellitus with hyperglycemia; E66.9 Obesity, unspecified; E78.00 Pure hypercholesterolemia, unspecified; G43.909 Migraine, unspecified, not intractable, without status migrainosus; F31.9 Bipolar disorder, unspecified; G47.33 Obstructive sleep apnea (adult) (pediatric); J38.5 Laryngeal spasm; R09.02 Hypoxemia; T38.0X5A Adverse effect of glucocorticoids and synthetic analogues, initial encounter; Z68.34 Body mass index [BMI] 34.0-34.9, adult; Y92.89 Other specified places as the place of occurrence of the external cause; Z91.19 Patient's noncompliance with other medical treatment and regimen; Z88.8 Allergy status to other drugs, medicaments and biological substances; Z86.73 Personal history of transient ischemic attack (TIA), and cerebral infarction without residual deficits; Z83.3 Family history of diabetes mellitus; Z82.5 Family history of asthma and other chronic lower respiratory diseases; Z82.49 Family history of ischemic heart disease and other diseases of the circulatory system; Z82.3 Family history of stroke; Z82.0 Family history of epilepsy and other diseases of the nervous system; J20.9 Acute bronchitis, unspecified
CPT/HCPCS: 36415; 36600; 71045; 80048; 80053; 80061; 80305; 81001; 82010; 82140; 82550; 82803; 82947; 82948; 83036; 83605; 83735; 83874; 83880; 84484; 85025; 85027; 86140; 87635; 87804; 93005; 93306; 93356; 94640; 97039; C9803; G0378; J0360; J1650; J1815; J1885; J1940; J2175; J2930